=== PATIENT | male | born 1945 | race Caucasian/White ===

== ENCOUNTER 2016-09-18 13:51 | Observation (INO) | payer BC, OTHER ==
[2016-09-18] MEDS ORDERED: CYCLOBENZAPRINE HCL 10 MG TABLET (FP) PO ONE (14:34)
[2016-09-18] MEDS ORDERED: KETOROLAC TROMETHAMINE 60 MG/2 ML VIAL IM ONE (14:34)
[2016-09-18] MEDS ORDERED: CYCLOBENZAPRINE HCL 10 MG TABLET (FP) ONE (14:38)
[2016-09-18] MEDS ORDERED: KETOROLAC TROMETHAMINE 60 MG/2 ML VIAL ONE (14:38)
--- NOTE | 2016-09-18 14:41 | PDOC ---
History of Present Illness - General Chief Complaint: Back Pain Stated Complaint: BACK PAIN Time Seen by Provider: 09/18/16 14:23 History Source: Patient Exam Limitations: No Limitations - History of Present Illness Initial Comments: 09/18/16 14:36 70-year-old male with history of borderline autism/mental retardation presents with worsening low back pain since night. Patient states was on the train riding home when the train stopped suddenly causing him to jerk forward and by the evening started with low back pain. Patient states was able to go to work yesterday but pain had worsened to the point that he could not perform certain movements due to the pain. Patient states went to bed last night at around 12 after urinating and at 3 AM this morning he awoke with tightness pressure unable to ambulate more than 10-20 feet. Patient denies abdominal pain , saddle anesthesia, sensory changes to the legs, or weakness. Pt states hx of sciatica. Occurred: reports: other (2 days ago) Severity: reports: moderate Pain Location: reports: back Method of Injury: Yes: other Loss of Consciousness: no loss of consciousness Associated Symptoms (Fall): trouble walking (secondary to low back pain) Past History - Travel Traveled outside of the country in the last 30 days: No Close contact w/someone who was outside of country & ill: No - Past Medical History Allergies/Adverse Reactions: Allergies Allergy/AdvReac Type Severity Reaction Status Date / Time No Known Allergies Allergy Verified 09/18/16 13:54 Home Medications: Ambulatory Orders Cyclobenzaprine HCl [Flexeril 10 mg] 10 mg PO BID PRN #60 tablet 09/20/16 Ibuprofen [Motrin -] 600 mg PO Q8H PRN #21 tablet 09/20/16 Miscellaneous Drug Not In Syst [Outpatient Lab Test] 1 each ASDIR #1 [facility] 03/27 Miscellaneous Medical Supply [Outpatient Order] 1 each ASDIR #1 misc Walker [Ultra-Light Rollator] 1 each DAILY #1 each 09/20/16 - Psycho/Social/Smoking Cessation Hx Suicidal Ideation: No Smoking History: Never smoked Patient Lives Alone: Yes Lives with/in: lives alone (but has large support system) Review of Systems - Review of Systems Able to Perform ROS?: Yes Constitutional: No: Symptoms Reported HEENTM: No: Symptoms Reported Respiratory: No: Symptoms reported ABD/GI: No: Symptoms Reported : No: Symptoms Reported Musculoskeletal: Yes: Back Pain, Muscle Pain (low back bilateral) Integumentary: No: Symptoms Reported Neurological: No: Symptoms reported Hematologic/Lymphatic: No: Symptoms Reported *Physical Exam - Vital Signs Last Vital Signs Temp Pulse Resp BP Pulse Ox 98.9 F 88 20 120/72 98 09/18/16 13:54 09/18/16 13:54 09/18/16 13:54 09/18/16 13:54 09/18/16 13:54 - Physical Exam General Appearance: Yes: Nourished, Appropriately Dressed, Mild Distress HEENT: negative: Pale Conjunctivae Neck: positive: Supple. negative: Tender, Decreased range of motion Gastrointestinal/Abdominal: positive: Soft. negative: Tenderness Musculoskeletal: positive: Muscle Spasm (bilateral lumbar paraspinous L3-L5). negative: Vertebral Tenderness (no midline tenderness) Extremity: positive: Normal Capillary Refill Integumentary: positive: Normal Color, Warm, Moist Neurologic: positive: Motor Strength 5/5 (ambulatory) ED Treatment Course - LABORATORY CBC & Chemistry Diagram: 09/18/16 20:10 09/18/16 Unknown - RADIOLOGY Radiology Studies Ordered: Category Date Time Status SPINE-LUMBAR ONLY [RAD] Stat Radiology 09/18/16 14:34 Ordered Medical Decision Making - Medical Decision Making 09/18/16 14:41 Patient with low back pain triggered by the injury sustained on the train coming home night now causing him difficulty with movement, ambulation and urination. Patient with likely muscle spasm in low back strain but will order lumbar x- rays along with Flexeril, Toradol, and urinalysis 09/18/16 15:57 Degenerative changes. Narrowing of the intravertebral disc spaces. Otherwise no acute findings. Awaiting urinalysis. 09/18/16 16:18 Patient states feeling better and requesting to go home. Pt ambulated in the room independently. Patient gave urine via urinal and will await results then discharge home with NSAIDs and muscle relaxer for muscle spasm/muscle strain. 09/18/16 16:36 Laboratory Tests 09/18/16 16:20 Urine Ketones 1+ H Ur Leukocyte Esterase Negative Pt drinking water. Friend will bring patient home. *DC/Admit/Observation/Transfer Diagnosis at time of Disposition: Low back strain Qualifiers: Encounter type: initial encounter Qualified Code(s): S39.012A - Strain of muscle, fascia and tendon of lower back, initial encounter - Discharge Dispostion Condition at time of disposition: Stable - Prescriptions - Referrals - Patient Instructions
[2016-09-18 16:31] LABS: URINE APPEARANCE CLEAR; URINE BILIRUBIN NEGATIVE (NEGATIVE); URINE BLOOD NEGATIVE (NEGATIVE); URINE COLOR YELLOW; URINE GLUCOSE (UA) NEGATIVE (NEGATIVE); URINE KETONE 1+ (NEGATIVE); URINE LEUK ESTERASE NEGATIVE (NEGATIVE); URINE NITRITE NEGATIVE (NEGATIVE); URINE PROTEIN NEGATIVE (NEGATIVE); URINE UROBILINOGEN NEGATIVE E.U./dl (0.2-1.0)
[2016-09-18] MEDS ORDERED: morphine CARPU-JECT 2 MG/1 ML DISP.SYRIN IVPUSH ONE ×2 (19:28→21:58)
--- NOTE | 2016-09-18 19:44 | PDOC ---
*Physical Exam - Vital Signs Last Vital Signs Temp Pulse Resp BP Pulse Ox 98.9 F 88 20 120/72 98 09/18/16 13:54 09/18/16 13:54 09/18/16 13:54 09/18/16 13:54 09/18/16 13:54 <Mona Hernandez - Last Filed: 09/18/16 19:41> - Vital Signs Last Vital Signs Temp Pulse Resp BP Pulse Ox 98.9 F 88 20 120/72 98 09/18/16 13:54 09/18/16 13:54 09/18/16 13:54 09/18/16 13:54 09/18/16 13:54 <Melanie Vieyra - Last Filed: 09/19/16 01:56> ED Treatment Course - ADDITIONAL ORDERS Additional order review: Laboratory Results 09/18/16 16:20 Urine Color Yellow Urine Appearance Clear Urine pH 6.0 Urine Protein Negative Urine Glucose (UA) Negative Urine Ketones 1+ H Urine Blood Negative Urine Nitrite Negative Urine Bilirubin Negative Urine Urobilinogen Negative Ur Leukocyte Esterase Negative - Medications Given in the ED: ED Medications Discontinued Medications Generic Name Dose Route Start Last Admin Trade Name Freq PRN Reason Stop Dose Admin Cyclobenzaprine HCl 5 mg 09/18/16 14:34 09/18/16 14:50 Flexeril - PO 09/18/16 14:35 5 mg ONCE ONE Administration Ketorolac Tromethamine 60 mg 09/18/16 14:34 09/18/16 14:50 Toradol Injection - IM 09/18/16 14:35 60 mg ONCE ONE Administration <Mona eHrnandez - Last Filed: 09/18/16 19:41> - LABORATORY CBC & Chemistry Diagram: 09/18/16 20:10 09/18/16 Unknown - ADDITIONAL ORDERS Additional order review: Laboratory Results 09/18/16 09/18/16 20:10 16:20 Sodium Cancelled Potassium Cancelled Chloride Cancelled Carbon Dioxide Cancelled Anion Gap Cancelled BUN Cancelled Creatinine Cancelled Creat Clearance w eGFR Cancelled Random Glucose Cancelled Calcium Cancelled Total Bilirubin Cancelled AST Cancelled ALT Cancelled Alkaline Phosphatase Cancelled Total Protein Cancelled Albumin Cancelled Urine Color Yellow Urine Appearance Clear Urine pH 6.0 Ur Specific [place] 1.020 Urine Protein Negative Urine Glucose (UA) Negative Urine Ketones 1+ H Urine Blood Negative Urine Nitrite Negative Urine Bilirubin Negative Urine Urobilinogen Negative Ur Leukocyte Esterase Negative 09/18/16 20:10 RBC 4.82 MCV 87.1 MCHC 33.3 RDW 14.1 MPV 8.0 Neutrophils % 60.1 Lymphocytes % 29.1 Monocytes % 8.8 Eosinophils % 0.9 Basophils % 1.1 - Medications Given in the ED: ED Medications Discontinued Medications Generic Name Dose Route Start Last Admin Trade Name Nadia PRN Reason Stop Dose Admin Cyclobenzaprine HCl 5 mg 09/18/16 14:34 09/18/16 14:50 Flexeril - PO 09/18/16 14:35 5 mg ONCE ONE Administration Ketorolac Tromethamine 60 mg 09/18/16 14:34 09/18/16 14:50 Toradol Injection - IM 09/18/16 14:35 60 mg ONCE ONE Administration Morphine Sulfate 1 mg 09/18/16 19:28 09/18/16 20:21 Morphine Injection - IVPUSH 09/18/16 19:29 1 mg ONCE ONE Administration <Melanie Vieyra - Last Filed: 09/19/16 01:56> Medical Decision Making - Medical Decision Making 09/18/16 19:41 70 yo M with h/o mild autism, sciatica , lives alone, here wtih c/o low back pain. pt states [place] was [place] when came to [employer] stop. had strain to low back. since has had low back pain debilitating him to point he can't walk. was able to come to ER today with assistance of his friend who helped himn get out of house with a cane, then wheelchair. no new bolwe or bladder incontinence, no new numbness or weakness. pain severe worse with movement, radiating down right leg. on exam pt awake alert, lungs clear. heart RRR no mr/g/. abd soft NT ext wwp. no midline spinal tenderness. right paraspinal spasm. 5/5 bilat lower ext strength. sensation intact bilaterally. plan: pain control, muslce relaxtion. if pt unable to walk, lives alone will require admission for pain control pt assessment for home safety assessment. pt seen and examined. <Mona Hernandez - Last Filed: 09/18/16 19:41> - Medical Decision Making 09/19/16 01:56 I never saw this patient. This is a patient that belongs to the [facility] prior to my shift. <Melanie Vieyra - Last Filed: 09/19/16 01:56> *DC/Admit/Observation/Transfer <Mona Hernandez - Last Filed: 09/18/16 19:41> <Melanie Vieyra - Last Filed: 09/19/16 01:56> Diagnosis at time of Disposition: Low back strain Qualifiers: Encounter type: initial encounter Qualified Code(s): S39.012A - Strain of muscle, fascia and tendon of lower back, initial encounter - Discharge Dispostion Condition at time of disposition: Good - Referrals - Patient Instructions - Post Discharge Activity
[2016-09-18] MEDS ORDERED: morphine CARPU-JECT 2 MG/1 ML DISP.SYRIN ONE ×2 (19:55→22:08)
[2016-09-18 20:20] LABS: BASOPHIL 1.1 % (0-2.0); EOSINOPHIL 0.9 % (0-4.5); MCHC 33.3 g/dl (32.0-35.9); MEAN CELL VOLUME 87.1 fl (80-96); NEUTROPHILS 60.1 % (42.8-82.8); PLATELET COUNT 235 K/MM3 (134-434); RDW 14.1 % (11.9-15.9); WHITE BLOOD COUNT 9.2 K/mm3 (4.0-10.0)
[2016-09-18 21:54] LABS: ALBUMIN 3.7 g/dl (3.4-5.0); ANION GAP 10 (8-16); CALCIUM 8.5 mg/dL (8.5-10.1); CO2 27 mmol/L (21-32); GLUCOSE,RANDOM 158 mg/dL (74-106); SGOT/AST 22 U/L (15-37); SGPT/ALT 26 U/L (12-78)
[2016-09-18 21:56] LABS: ALK PHOS 57 U/L (45-117); BILIRUBIN,TOTAL 1.1 mg/dL (0.2-1.0); TOT PROT 7.1 g/dl (6.4-8.2)
--- NOTE | 2016-09-18 23:12 | PDOC ---
*Physical Exam - Vital Signs Last Vital Signs Temp Pulse Resp BP Pulse Ox 98.9 F 88 20 120/72 98 09/18/16 13:54 09/18/16 13:54 09/18/16 13:54 09/18/16 13:54 09/18/16 13:54 ED Treatment Course - LABORATORY CBC & Chemistry Diagram: 09/18/16 20:10 09/18/16 Unknown - ADDITIONAL ORDERS Additional order review: Laboratory Results 09/18/16 09/18/16 09/18/16 Unknown 20:10 16:20 Sodium 137 Cancelled Potassium 4.2 Cancelled Chloride 100 Cancelled Carbon Dioxide 27 Cancelled Anion Gap 10 Cancelled BUN 17 Cancelled Creatinine 1.0 Cancelled Creat Clearance w eGFR > 60 Cancelled Random Glucose 158 H Cancelled Calcium 8.5 Cancelled Total Bilirubin 1.1 H Cancelled AST 22 Cancelled ALT 26 Cancelled Alkaline Phosphatase 57 Cancelled Total Protein 7.1 Cancelled Albumin 3.7 Cancelled Urine Color Yellow Urine Appearance Clear Urine pH 6.0 Ur Specific [place] 1.020 Urine Protein Negative Urine Glucose (UA) Negative Urine Ketones 1+ H Urine Blood Negative Urine Nitrite Negative Urine Bilirubin Negative Urine Urobilinogen Negative Ur Leukocyte Esterase Negative 09/18/16 20:10 RBC 4.82 MCV 87.1 MCHC 33.3 RDW 14.1 MPV 8.0 Neutrophils % 60.1 Lymphocytes % 29.1 Monocytes % 8.8 Eosinophils % 0.9 Basophils % 1.1 - RADIOLOGY Radiology Studies Ordered: Category Date Time Status CHEST X-RAY PORTABLE* [RAD] Stat Radiology 09/18/16 19:27 Taken - Medications Given in the ED: ED Medications Discontinued Medications Generic Name Dose Route Start Last Admin Trade Name Freq PRN Reason Stop Dose Admin Cyclobenzaprine HCl 5 mg 09/18/16 14:34 09/18/16 14:50 Flexeril - PO 09/18/16 14:35 5 mg ONCE ONE Administration Ketorolac Tromethamine 60 mg 09/18/16 14:34 09/18/16 14:50 Toradol Injection - IM 09/18/16 14:35 60 mg ONCE ONE Administration Morphine Sulfate 1 mg 09/18/16 19:28 09/18/16 20:21 Morphine Injection - IVPUSH 09/18/16 19:29 1 mg ONCE ONE Administration Morphine Sulfate 1 mg 09/18/16 21:58 09/18/16 22:05 Morphine Injection - IVPUSH 09/18/16 21:59 1 mg ONCE ONE Administration *DC/Admit/Observation/Transfer Diagnosis at time of Disposition: Low back strain Qualifiers: Encounter type: initial encounter Qualified Code(s): S39.012A - Strain of muscle, fascia and tendon of lower back, initial encounter - Discharge Dispostion Condition at time of disposition: Good Admit: Yes - Referrals Referrals: Donnell Blanton [Primary Care Provider] - - Patient Instructions Printed Discharge Instructions: DI for Low Back Pain, DI for Back Spasm Additional Instructions: Please take medication as needed for discomfort and apply ice to the affected area as much as he can tolerate for the next 72 hours. Rest, and follow-up with your PCP as needed . otherwise return to ED if symptoms worsen - Post Discharge Activity
--- NOTE | 2016-09-19 00:04 | HP ---
CHIEF COMPLAINT: back pain PCP: HISTORY OF PRESENT ILLNESS: 70 year old male with history of sciatica, presents to the emergency room with back pain and inability to ambulate. He states that on night he was riding the train home, when it stopped abruptly. Patient started feeling symptoms of right lower back pain (sharp, non radiated,10/10) later that night that progressed to patients's inability to ambulate. He took 2 aspirin, with minimal relief. Tonight patient got up to urinate and felt increased pain which provoked him to com e to the emergency room. He was brought in by his friend, he lives alone at home. Patient denies numbness, tingling, fever, chills Patient denies decreased sensation, chest pain, sob, changes in bowel or bladder. ER course was notable for, lumbar xrays indicative of degenerative disease, no acute fracture. Recent Travel: no PAST MEDICAL HISTORY: sciatica PAST SURGICAL HISTORY: hernia repair Social History: Smoking:no Alcohol:no Drugs: no Family History: Allergies No Known Allergies Allergy (Verified 09/18/16 13:54) HOME MEDICATIONS: Home Medications Medication Instructions Recorded NK [No Known Home Medication] 09/18/16 REVIEW OF SYSTEMS CONSTITUTIONAL: Absent: fever, chills, diaphoresis, generalized weakness, malaise, loss of appetite, weight change HEENT: Absent: rhinorrhea, nasal congestion, throat pain, throat swelling, difficulty swallowing, mouth swelling, ear pain, eye pain, visual changes CARDIOVASCULAR: Absent: chest pain, syncope, palpitations, irregular heart rate, lightheadedness , peripheral edema RESPIRATORY: Absent: cough, shortness of breath, dyspnea with exertion, orthopnea, wheezing, stridor, hemoptysis GASTROINTESTINAL: Absent: abdominal pain, abdominal distension, nausea, vomiting, diarrhea, constipation, melena, hematochezia GENITOURINARY: Absent: dysuria, frequency, urgency, hesitancy, hematuria, flank pain, genital pain MUSCULOSKELETAL: Positive: back pain Absent: myalgia, arthralgia, joint swelling, , neck pain SKIN: Absent: rash, itching, pallor HEMATOLOGIC/IMMUNOLOGIC: Absent: easy bleeding, easy bruising, lymphadenopathy, frequent infections ENDOCRINE: Absent: unexplained weight gain, unexplained weight loss, heat intolerance, cold intolerance NEUROLOGIC: Absent: headache, focal weakness or paresthesias, dizziness, unsteady gait, seizure, mental status changes, bladder or bowel incontinence PSYCHIATRIC: Absent: anxiety, depression, suicidal or homicidal ideation, hallucinations. PHYSICAL EXAMINATION Vital Signs - 24 hr 09/18/16 13:54 Temperature 98.9 F Pulse Rate 88 Respiratory 20 Rate Blood Pressure 120/72 O2 Sat by Pulse 98 Oximetry (%) GENERAL: Awake, alert, and fully oriented, in no acute distress, mild mental retardation?. HEAD: Normal with no signs of trauma. EYES: Pupils equal, round and reactive to light, extraocular movements intact, sclera anicteric, conjunctiva clear. No lid lag. NECK: Normal range of motion, supple without lymphadenopathy, JVD, or masses. LUNGS: Breath sounds equal, clear to auscultation bilaterally. No wheezes, and no crackles. No accessory muscle use. HEART: Regular rate and rhythm, normal S1 and S2 without murmur, rub or gallop. ABDOMEN: Soft, nontender, not distended, normoactive bowel sounds, no guarding, no rebound, no masses. No hepatomegaly or splenomegaly. MUSCULOSKELETAL: Norml range of motion of upper and lower extremities. No bony deformities or tenderness. No CVA tenderness. no surrounding erythema or edema, or ecchymosis UPPER EXTREMITIES: 2+ pulses, warm, well-perfused. No cyanosis. No clubbing. No peripheral edema. LOWER EXTREMITIES: 2+ pulses, warm, well-perfused. No calf tenderness. No peripheral edema. NEUROLOGICAL: Cranial nerves II-XII intact. Normal speech. gait not observed , patient unable to get up to ambulate due to severe pain with slight movement SKIN: Warm, dry, normal turgor, no rashes or lesions noted, normal capillary refill. Laboratory Results - last 24 hr 09/18/16 09/18/16 09/18/16 16:20 20:10 20:10 WBC 9.2 RBC 4.82 Hgb 14.0 Hct 42.0 MCV 87.1 MCHC 33.3 RDW 14.1 Plt Count 235 MPV 8.0 Neutrophils % 60.1 Lymphocytes % 29.1 Monocytes % 8.8 Eosinophils % 0.9 Basophils % 1.1 Sodium Cancelled Potassium Cancelled Chloride Cancelled Carbon Dioxide Cancelled Anion Gap Cancelled BUN Cancelled Creatinine Cancelled Creat Clearance w eGFR Cancelled Random Glucose Cancelled Calcium Cancelled Total Bilirubin Cancelled AST Cancelled ALT Cancelled Alkaline Phosphatase Cancelled Total Protein Cancelled Albumin Cancelled Urine Color Yellow Urine Appearance Clear Urine pH 6.0 Ur Specific [place] 1.020 Urine Protein Negative Urine Glucose (UA) Negative Urine Ketones 1+ H Urine Blood Negative Urine Nitrite Negative Urine Bilirubin Negative Urine Urobilinogen Negative Ur Leukocyte Esterase Negative 09/18/16 Unknown WBC RBC Hgb Hct MCV MCHC RDW Plt Count MPV Neutrophils % Lymphocytes % Monocytes % Eosinophils % Basophils % Sodium 137 Potassium 4.2 Chloride 100 Carbon Dioxide 27 Anion Gap 10 BUN 17 Creatinine 1.0 Creat Clearance w eGFR > 60 Random Glucose 158 H Calcium 8.5 Total Bilirubin 1.1 H AST 22 ALT 26 Alkaline Phosphatase 57 Total Protein 7.1 Albumin 3.7 Urine Color Urine Appearance Urine pH Ur Specific [place] Urine Protein Urine Glucose (UA) Urine Ketones Urine Blood Urine Nitrite Urine Bilirubin Urine Urobilinogen Ur Leukocyte Esterase Lumbar spine x-ray Impression: Degenerative changes. Wedging. Vacuum phenomena. Narrowing of interverterbral disc spaces. ASSESSMENT AND PLAN 70 year old male with a past medical history of sciatica, presents to the emergency room with back pain after riding on train when it stopped abruptly. #right sided lower back pain/unable to ambulate most likely secondary to muscle spasm verses pulled muscle: -no point tenderness, no signs of cord compression -negative lumbar imaging -methocarbamol 1.5 grams qid -ibprofen 400mg q8hrs prn -consider physical therapy FEN: Fluids: po Electrolytes: wnl Diet: regular VTE prophylaxis: scds Disposition: obs; Problem List - Problem (1) Low back strain Code(s): S39.012A - STRAIN OF MUSCLE, FASCIA AND TENDON OF LOWER BACK, INIT Qualifiers: Encounter type: initial encounter Qualified Code(s): S39.012A - Strain of muscle, fascia and tendon of lower back, initial encounter Visit type - Emergency Visit Emergency Visit: Yes ED Registration Date: 09/18/16 Care time: The patient presented to the Emergency Department on the above date and was hospitalized for further evaluation of their emergent condition. - New Patient This patient is new to me today: Yes Date on this admission: 09/19/16 - Critical Care Critical Care patient: No
--- NOTE | 2016-09-19 00:07 | PN ---
<Nuno Blair - Last Filed: 09/19/16 00:07> Teaching Attending Note Name of Resident: Micheline Garcia ATTENDING PHYSICIAN STATEMENT I saw and evaluated the patient. I reviewed the resident's note and discussed the case with the resident. I agree with the resident's findings and plan as documented. SUBJECTIVE: OBJECTIVE: ASSESSMENT AND PLAN: <Mele Camarillo - Last Filed: 09/19/16 00:20> Teaching Attending Note Name of Resident: Micheline Garcia ATTENDING PHYSICIAN STATEMENT I saw and evaluated the patient. I reviewed the resident's note and discussed the case with the resident. I agree with the resident's findings and plan as documented. SUBJECTIVE: 70 year old male, with a significant past medical history of right sided sciatica, who presents to the ED with back pain for the past 3 days. He notes that he was on the train on his way back home when the trained stopped abruptly , causing him to jerk forward, which prompted the start of the back pain. He reports that he was able to ambulate with the pain but his ambulation has become short in distance due to the pain. He also reports that he took 2 aspirins with no relief of his symptoms. He notes that his pain is exacerbated with movement. He denies any radiation of the pain to his lower extremities. He denies any bladder or bowel incontinence. He denies any focal weaknesses in his legs. OBJECTIVE: GENERAL: Awake, alert, and fully oriented, in no acute distress HEENT: Atraumatic. PERRLA, EOMI. Moist mucosa. No JVD LUNGS: No distress, speaks full sentences, clear to auscultation bilaterally HEART: Regular rate and rhythm, normal S1 and S2, no murmurs, rubs or gallops, peripheral pulses normal and equal bilaterally. ABDOMEN: Soft, nontender, normoactive bowel sounds. No guarding, no rebound. No masses MUSCULOSKELTAL: (+) Right paraspinal tenderness. No spinal tenderness. EXTREMITIES: Normal inspection, Normal range of motion, no edema. No clubbing or cyanosis. Straight leg raise test negative bilaterally. NEUROLOGICAL: Normal speech, no focal sensorimotor deficits. No hyperreflexia in the lower extremities. SKIN: Warm, Dry, normal turgor, no rashes or lesions noted. CBCD WBC 9.2 K/mm3 (4.0-10.0) 09/18/16 20:10 RBC 4.82 M/mm3 (4.00-5.60) 09/18/16 20:10 Hgb 14.0 GM/dL (11.7-16.9) 09/18/16 20:10 Hct 42.0 % (35.4-49) 09/18/16 20:10 MCV 87.1 fl (80-96) 09/18/16 20:10 MCHC 33.3 g/dl (32.0-35.9) 09/18/16 20:10 RDW 14.1 % (11.9-15.9) 09/18/16 20:10 Plt Count 235 K/MM3 (134-434) 09/18/16 20:10 MPV 8.0 fl (7.5-11.1) 09/18/16 20:10 CMP Sodium 137 mmol/L (136-145) 09/18/16 Unknown Potassium 4.2 mmol/L (3.5-5.1) 09/18/16 Unknown Chloride 100 mmol/L (98-107) 09/18/16 Unknown Carbon Dioxide 27 mmol/L (21-32) 09/18/16 Unknown Anion Gap 10 (8-16) 09/18/16 Unknown BUN 17 mg/dL (7-18) 09/18/16 Unknown Creatinine 1.0 mg/dL (0.7-1.3) 09/18/16 Unknown Creat Clearance w eGFR > 60 (>60) 09/18/16 Unknown Calcium 8.5 mg/dL (8.5-10.1) 09/18/16 Unknown Total Bilirubin 1.1 mg/dL (0.2-1.0) H 09/18/16 Unknown AST 22 U/L (15-37) 09/18/16 Unknown ALT 26 U/L (12-78) 09/18/16 Unknown Alkaline Phosphatase 57 U/L (45-117) 09/18/16 Unknown Total Protein 7.1 g/dl (6.4-8.2) 09/18/16 Unknown Albumin 3.7 g/dl (3.4-5.0) 09/18/16 Unknown Lumbar spine x-ray Impression: Degenerative changes. Wedging. Vacuum phenomena. Narrowing of interverterbral disc spaces. ASSESSMENT AND PLAN 1. Acute back pain after patient jerked abruptly. Likely muscle strain versus spasm. Do not suspect spinal cord compression or hernia because of normal physical exam. Unable to ambulate because of pain. - Methocarbamol 1.5 grams 4 times a day for 2-3 days. - Ibuprofen 400 mg Q8 Hours PRN if pain. - Fall precautions. - Consider physical therapy if no improvement. 2. Diet - Regular diet 3. DVT prophylaxes - Low Risk - SCDs. Documentation prepared by Mele Camarillo, acting as medical stenographer for Nuno Blair MD.
[2016-09-19] MEDS: HEPARIN NA (PORCINE) 5,000 UNITS/ML 1ML VIAL SQ SCH ×3 (02:00→20:39)
[2016-09-19 04:15] VITALS: BMI 24.9
[2016-09-19] MEDS ORDERED: ACETAMINOPHEN 325 MG TABLET (FP) PO PRN (10:17)
[2016-09-19] MEDS: CYCLOBENZAPRINE HCL 10 MG TABLET (FP) PO PRN (12:18)
--- NOTE | 2016-09-19 13:04 | PN ---
Physical Exam: SUBJECTIVE: Patient seen and examined. He says back pain is less severe but he still is having difficulty ambulating. OBJECTIVE: Vital Signs Period Temp Pulse Resp BP Sys/Grimes Pulse Ox Last 24 Hr 98.6 F-98.6 F 49-60 18-18 104-121/53-61 98-98 GENERAL: The patient is awake, alert, and fully oriented, in no acute distress. LUNGS: Breath sounds equal, clear to auscultation bilaterally, no wheezes, no crackles, no accessory muscle use. HEART: Regular rate and rhythm, S1, S2 without murmur, rub or gallop. ABDOMEN: Soft, nontender, nondistended, normoactive bowel sounds, no guarding, no rebound, no hepatosplenomegaly, no masses. EXTREMITIES: 2+ pulses, warm, well-perfused, no edema. BACK: No lumbar spinal or paraspinal tenderness. NEUROLOGICAL: Alert, oriented, cranial nerves intact, sensation intact, strength 5/5 in all extremities. Laboratory Results - last 24 hr 09/18/16 Unknown Sodium 137 Potassium 4.2 Chloride 100 Carbon Dioxide 27 Anion Gap 10 BUN 17 Creatinine 1.0 Creat Clearance w eGFR > 60 Random Glucose 158 H Calcium 8.5 Total Bilirubin 1.1 H AST 22 ALT 26 Alkaline Phosphatase 57 Total Protein 7.1 Albumin 3.7 Active Medications Generic Name Dose Route Start Last Admin Trade Name Freq PRN Reason Stop Dose Admin Acetaminophen 650 mg 09/19/16 10:17 09/19/16 12:18 Tylenol - PO 650 mg Q4H PRN Administration FEVER OR PAIN Cyclobenzaprine HCl 5 mg 09/19/16 10:16 09/19/16 12:18 Flexeril - PO 5 mg TID PRN Administration BACK PAIN Heparin Sodium (Porcine) 5,000 unit 09/19/16 02:00 09/19/16 10:14 Heparin - SQ 5,000 unit Q8H-IV ALICIA Administration ASSESSMENT/PLAN: This is a 70 year old man with a history of sciatica who presented to the ER with right sided low back pain. 1. Low back pain secondary to muscle spasm and lumbar degenerative disease - Improving - Continue ibuprofen as needed, Flexeril as needed - Physical therapy - Expect discharge tomorrow with outpatient follow-up with PCP, physiatry Visit type - Emergency Visit Emergency Visit: Yes ED Registration Date: 09/18/16 Care time: The patient presented to the Emergency Department on the above date and was hospitalized for further evaluation of their emergent condition. - New Patient This patient is new to me today: Yes Date on this admission: 09/19/16 - Critical Care Critical Care patient: No - Discharge Referral Referred to [facility] No
[2016-09-19] MEDS: IBUPROFEN 600 MG TABLET (FP) PO PRN (14:36)
--- NOTE | 2016-09-19 15:35 | EKG ---
Test Reason : Blood Pressure : / mmHG Vent. Rate : 055 BPM Atrial Rate : 055 BPM P-R Int : 160 ms QRS Dur : 128 ms QT Int : 452 ms P-R-T Axes : 034 066 047 degrees QTc Int : 432 ms SINUS BRADYCARDIA RIGHT BUNDLE BRANCH BLOCK ABNORMAL ECG NO PREVIOUS ECGS AVAILABLE BASELINE ARTIFACT Confirmed by LAKISHA OKEEFE, RHIANNON ([id number]) on 09/19/2016 3:34:32 PM Referred By: Confirmed By:RHIANNON BANUELOS MD
[2016-09-20] MEDS: HEPARIN NA (PORCINE) 5,000 UNITS/ML 1ML VIAL SQ SCH ×3 (03:05→18:08)
--- NOTE | 2016-09-20 09:29 | PN ---
Teaching Attending Note Name of Resident: Star Bartlett ATTENDING PHYSICIAN STATEMENT I saw and evaluated the patient. I reviewed the resident's note and discussed the case with the resident. I agree with the resident's findings and plan as documented. SUBJECTIVE: Patient reports increased right low back pain since he woke up this morning. He is ambulating. OBJECTIVE: Vital Signs Period Temp Pulse Resp BP Sys/Grimes Pulse Ox Last 24 Hr 98.1 F-99.5 F 61-74 18-20 101-114/55-68 95-98 HEART: S1S2, RRR LUNGS: Clear ABDOMEN: Soft, non-tender, non-distended, normal BS EXTREMITIES: No edema BACK: No spinal/paraspinal tenderness NEUROLOGICAL: Cranial nerves intact, sensation intact, strength 5/5 in all extremities. ASSESSMENT AND PLAN: This is a 70 year old man with a history of sciatica who presented to the ER with right sided low back pain. 1. Low back pain secondary to muscle spasm and lumbar degenerative disease - Continue ibuprofen, Flexeril - Add Ultram as needed - Physical therapy - Probable discharge after PT evaluation with outpatient follow-up with PCP, physiatry
[2016-09-20] MEDS ORDERED: traMADol HCL 50 MG TABLET PO ONE (09:30)
[2016-09-20] MEDS: CYCLOBENZAPRINE HCL 10 MG TABLET (FP) PO PRN (11:35)
[2016-09-20] MEDS: IBUPROFEN 600 MG TABLET (FP) PO PRN (14:28)
[2016-09-20] MEDS: CYCLOBENZAPRINE HCL 10 MG TABLET (FP) PO SCH (21:40)
--- NOTE | 2016-09-20 22:28 | DS ---
Physical Exam: SUBJECTIVE: Patient seen and examined at bedside at 7pm with friend at bedside. He stated his lower back pain has improved from 10/10 on admission to 6/10 now. Ultram helped a little bit but the pain still unbearable. His friend and he would like to stay in the hospital and get MRI done. OBJECTIVE: Vital Signs Period Temp Pulse Resp BP Sys/Grimes Pulse Ox Last 24 Hr 98.2 F-99.0 F 57-69 18-20 87-132/50-69 98-98 PHYSICAL EXAM GENERAL: Awake, alert, and fully oriented, in no acute distress HEAD: Normal with no signs of trauma. EYES: Pupils equal, round and reactive to light, extraocular movements intact NECK: supple without lymphadenopathy, JVD, or masses. LUNGS: CTAB HEART:RRR, normal S1 and S2 without murmur, rub or gallop. ABDOMEN: Soft, nontender, not distended, normoactive bowel sounds, no guarding, no rebound, no masses. No hepatomegaly or splenomegaly. MUSCULOSKELETAL: Range of motion of the back limited by pain EXTREMITIES: No calf tenderness. No peripheral edema. SKIN: Warm, dry, normal turgor, no rashes or lesions noted, normal capillary refill. LABS HOSPITAL COURSE: Date of Admission:09/18/16 70 year old male with a past medical history of sciatica, presents to the emergency room with back pain after riding on train when it stopped abruptly. His intractable lower back pain is likely a combination of degenerative disease , narrowing of intervebral space and muscle strain. Spine X-ray is consistent with above findings. Patient had relief on flexiril and ibuprofen and later with ultram. Physical therapy evaluated him and he's able to ambulate with 2 wheel walker. He was explained fully the prognosis and told to follow up with orthopedics or PM&R as outpatient, including outpatient MRI of the back. His friend, who brought him into the ED, insists he should stay to get the MRI done. The patient and his friend got tearful and would like to stay to be further evaluated. MRI is therefore scheduled for the next day. MRI of spine and thoracic demonstrate extensive degenerative changes but no acute pathology was found. Call made to pharmacy to adjust his flexeril from 10mg BID PRN to TID standing with only 2 weeks of supply. Patient was explained repeatedly regarding the chronic nature of his back pain and he would need to get referral from his PMD for PM&M or orthopedic evaluation. Date of Discharge: 09/20/16 Minutes to complete discharge: 35 Discharge Summary Reason For Visit: LUMBAR REGION STRAIN Current Active Problems Low back strain (Chronic) Condition: Stable - Instructions Diet, Activity, Other Instructions: Your lower back pain has been a chronic problem and you may continue to take ibuprofen and flexiril as needed. and apply ice to the affected area to relieve the pain. MRI is not urgent for now and you may have it done as outpatient. Please follow up with your primary doctor as soon as possible for orthopedics or pain management referral. Referrals: Donnell Blanton [Primary Care Provider] - Disposition: HOME - Home Medications Comprehensive Discharge Medication List: Ambulatory Orders Cyclobenzaprine HCl [Flexeril 10 mg] 10 mg PO BID PRN #60 tablet 09/20/16 Ibuprofen [Motrin -] 600 mg PO Q8H PRN #21 tablet 09/20/16 Miscellaneous Drug Not In Syst [Outpatient Lab Test] 1 each ASDIR #1 misc 03/27 Miscellaneous Medical Supply [Outpatient Order] 1 each ASDIR #1 misc Walker [Ultra-Light Rollator] 1 each DAILY #1 each 09/20/16 This patient is new to me today: Yes Date on this admission: 09/21/16 Emergency Visit: No Critical Care patient: No - Discharge Referral Referred to [facility] No
[2016-09-21] MEDS: HEPARIN NA (PORCINE) 5,000 UNITS/ML 1ML VIAL SQ SCH ×3 (02:11→18:21)
[2016-09-21] MEDS: CYCLOBENZAPRINE HCL 10 MG TABLET (FP) PO SCH ×2 (06:22→14:24)
[2016-09-21] MEDS: IBUPROFEN 600 MG TABLET (FP) PO PRN (09:55)
--- NOTE | 2016-09-21 12:43 | PN ---
Teaching Attending Note Name of Resident: Star Bartlett ATTENDING PHYSICIAN STATEMENT I saw and evaluated the patient. I reviewed the resident's note and discussed the case with the resident. I agree with the resident's findings and plan as documented. SUBJECTIVE:continues to have low back pain which makes it difficult to ambulate. started suddenly after jolted on train last week. states some days are better than others. did not see PMD for pain and came directly to ER. OBJECTIVE: Last Vital Signs Temp Pulse Resp BP Pulse Ox 98.3 F 58 L 18 96/54 98 09/21/16 05:45 09/21/16 05:45 09/21/16 05:45 09/21/16 05:45 09/21/16 02:00 General NAD CV S1 S2 RRR no murmur/rub/gallop Back no emily point tenderness, R lumbar muscle tenderness on light palpation. ASSESSMENT AND PLAN: 70 yo M with PMH sciatica who presented to the ER with right sided low back pain. 1. Low back pain - due to muscle spasm from minor trauma on train vs degenerative disease. XR showing narrowing of the disc. pt refused to leave yesterday until MRI was done. awaiting for it to be done this morning. if negative explained to pt will just need outpatient PT. cont with flexeril TID. explained to pt this will liekly require time to improve. if it does not will need to f/u iw PMD for further workup. RW on discharge. 2. d/c home pending MRI results
[2016-09-21 15:30] VITALS: BP 115/61; PULSE 68; TEMP 98.7
== END 2016-09-21 19:53 | disposition home or self-care (01) ==
LOC: JER 13:51 → INTOOBSV 23:12 → JERBED 23:12 → J7W 09-19 01:00
PROVIDERS: ADMIT Internal Medicine; ATTEND Internal Medicine
PROC: 3E033NZ Introduction of Analgesics, Hypnotics, Sedatives into Peripheral Vein, Percutaneous Approach (ICD-10-PCS; principal; 2016-09-18)
PROC: 3E0233Z Introduction of Anti-inflammatory into Muscle, Percutaneous Approach (ICD-10-PCS; 2016-09-18)
PROC: 3E013GC Introduction of Other Therapeutic Substance into Subcutaneous Tissue, Percutaneous Approach (ICD-10-PCS; 2016-09-18)
DX: S39.012A Strain of muscle, fascia and tendon of lower back, initial encounter (principal); R26.2 Difficulty in walking, not elsewhere classified; F84.9 Pervasive developmental disorder, unspecified; M54.31 Sciatica, right side; X58.XXXA Exposure to other specified factors, initial encounter; Y93.I9 Activity, other involving external motion; Y92.815 Train as the place of occurrence of the external cause
CPT/HCPCS: 36415; 71010-TC; 72100-TC; 72146-TC; 72148-TC; 80053; 81003; 85025; 93005; 93010; 97116-GP; 97161-GP; 99283-25; G0378; J1644

== ENCOUNTER 2021-10-05 11:52 | Emergency (ER) | payer OTHER, BC ==
[2021-10-05 12:09] VITALS: BMI 23.3
[2021-10-05 12:36] LABS: BASO % 1.1 % (0-2.0); EOS % 4.3 % (0-4.5); HEMATOCRIT 42.2 % (35.4-49); LYMPH % 28.9 % (8-40); MCH 29.4 pg (25.7-33.7); MCHC 33.1 g/dl (32.0-35.9); MEAN CELL VOLUME 88.7 fl (80-96); MEAN PLT VOLUME 7.7 fl (7.5-11.1); MONO % 8.8 % (3.8-10.2); NEUT % 56.9 % (42.8-82.8); PLATELET COUNT 235 10^3/uL (134-434); RBC 4.77 M/mm3 (4.00-5.60); RDW 15.4 % (11.9-15.9); WHITE BLOOD COUNT 6.9 K/mm3 (4.0-10.0)
[2021-10-05 12:43] LABS: INR 1.03 (0.83-1.09); PROTHROMBIN TIME (PATIENT) 11.9 SEC (9.7-13.0)
[2021-10-05 12:46] LABS: ACTIVATED PTT 33.4 SECONDS (25.2-36.5)
[2021-10-05 12:56] LABS: CALCIUM 9.2 mg/dL (8.5-10.1)
[2021-10-05 12:57] LABS: ALBUMIN 4.1 g/dl (3.4-5.0); BLOOD UREA NITROGEN 13.9 mg/dL (7-18)
[2021-10-05 13:00] LABS: CREATININE 0.9 mg/dL (0.55-1.3)
[2021-10-05 13:01] LABS: BILIRUBIN,TOTAL 0.6 mg/dL (0.2-1)
[2021-10-05 14:18] VITALS: BP 116/78; PULSE 64; TEMP 97.2
== END 2021-10-05 14:19 | disposition home or self-care (01) ==
LOC: JER 11:52
DX: N44.00 Torsion of testis, unspecified (principal)
CPT/HCPCS: 0241U-QW; 36415; 80053; 85025; 85610; 85730; 86850; 86900; 86901; 93005; 93010; 99284-25